=== PATIENT | female | born 1990 | race African-American/Black ===

== ENCOUNTER 2022-04-24 12:03 | Emergency (ER) | payer MEDICAID ==
[~2022-04-24] VITALS: Ht 165.1 cm; Wt 63.5 kg
[2022-04-24 12:09] VITALS: BP 114/72
[2022-04-24] MEDS ORDERED: ACETAMINOPHEN 325MG TABLET PO ONE (13:15)
[2022-04-24] MEDS ORDERED: LIDOCAINE HCL 1% 20ML VIAL (Pyxis) INJ INFIL ONE (14:45)
[2022-04-24] MEDS ORDERED: LIDOCAINE HCL/PF 1% 10 MG/ML 5ML VIAL INFIL NR (15:00)
[2022-04-24] MEDS ORDERED: HYDROCODONE/ACETAMINOPHEN 5/325MG TABLET PO ONE (15:15)
[2022-04-24] MEDS ORDERED: HYDR-4001 MT (15:57)
[2022-04-24] MEDS ORDERED: IBUP-2029 MT (15:57)
== END 2022-04-24 16:31 | disposition home or self-care (01) ==
LOC: ER 12:03
DX: S52.611A Displaced fracture of right ulna styloid process, initial encounter for closed fracture (principal); S52.501A Unspecified fracture of the lower end of right radius, initial encounter for closed fracture; J45.909 Unspecified asthma, uncomplicated; X58.XXXA Exposure to other specified factors, initial encounter; Y93.89 Activity, other specified; Y92.89 Other specified places as the place of occurrence of the external cause; Y99.8 Other external cause status
CPT/HCPCS: 25605; 73090; 73100; 73110; 99284; J3490; Z7610